=== PATIENT | female | born 1955 | race African-American/Black ===

== ENCOUNTER 2016-06-05 21:42 | Observation (INO) | payer OTHER ==
[~2016-06-05] VITALS: Ht 157.5 cm; Wt 82.0 kg
[~2016-06-05 21:42] MED LIST: AMLO10 PO; ASPI81 PO; CLON.1 PO; FURO1TAB93 PO; METO100T PO; NITR0.4S SL; PRIN20TA2 PO; TELM1TAB56 PO
[2016-06-05 21:45] VITALS: BP 190/90; PULSE 91; RESP 15; TEMP 98.6; O2SAT 100
[2016-06-05] MEDS ORDERED: SODIUM CHLORIDE 0.9% FLUSH 5 ML FLUSH IVF PRN (22:30)
[2016-06-05] MEDS ORDERED: ASPI81TA81 PO (22:47)
[2016-06-05] MEDS ORDERED: AMLO10TA2 PO (22:47)
[2016-06-05] MEDS ORDERED: METF500T PO (22:47)
[2016-06-05] MEDS ORDERED: FURO1TAB60 PO (22:47)
[2016-06-05] MEDS ORDERED: NITR1SUB3 SL (22:47)
[2016-06-05 22:56] LABS: AUTOMATED NEUTROPHIL # 1.8 TH/MM3 (1.8-7.7); BASOPHIL % 0.8 % (0.0-2.0); EOSINOPHIL # 0.1 TH/MM3 (0-0.4); HEMATOCRIT 39.1 % (35.0-46.0); HEMO FLAGS DIFF FINAL; LYMPH % 58.1 % (9.0-44.0); LYMPHOCYTE # 3.4 TH/MM3 (1.0-4.8); MEAN CELL VOLUME 84.9 FL (80.0-100.0); MEAN CORPUSCULAR HEMOGLOBIN 28.3 PG (27.0-34.0); MEAN CORPUSCULAR HGB CONC 33.4 % (32.0-36.0); MONO % 8.2 % (0.0-8.0); NEUT % 30.9 % (16.0-70.0); PLATELET COUNT 272 TH/MM3 (150-450); RED BLOOD COUNT 4.61 MIL/MM3 (4.00-5.30); RED CELL DISTRIBUTION WIDTH 12.8 % (11.6-17.2); WHITE BLOOD COUNT 5.9 TH/MM3 (4.0-11.0)
--- NOTE | 2016-06-05 23:06 | RADRPT ---
EXAM DATE/TIME: 06/05/2016 22:38 [facility] COMPARISON: No previous studies available for comparison. INDICATIONS : Chest pressure. MEDICAL HISTORY : Hyperthyroidism. Diabetes mellitus type II. SURGICAL HISTORY : Pacemaker. ENCOUNTER: Initial ACUITY: 1 day PAIN SCORE: 1/10 LOCATION: Bilateral chest FINDINGS: A single view of the chest demonstrates mild cardiac enlargement. Pacer leads overlying right atrium and right ventricle. No effusion. No pneumothorax. CONCLUSION: 1. Cardiomegaly. The pacer leads overlie right atrium and right ventricle. No focal consolidation or effusion. Bill Ventura MD on June 05, 2016 at 22:59 Board Certified Radiologist. This report was verified electronically.
[2016-06-05 23:07] LABS: APTT (PATIENT) 23.8 SEC (24.3-30.1); PROTHROMBIN TIME - PATIENT 10.7 SEC (9.8-11.6)
[2016-06-05 23:25] LABS: ALKALINE PHOSPHATASE 73 U/L (45-117); ALT (GPT) 32 U/L (10-53); ANION GAP 9 MEQ/L (5-15); AST (GOT) 27 U/L (15-37); BICARBONATE 30.4 MEQ/L (21.0-32.0); BLOOD UREA NITROGEN 9 MG/DL (7-18); CHLORIDE 101 MEQ/L (98-107); CREATINE KINASE 455 U/L (26-192); GLOMERULAR FILTRATION RATE 76 ML/MIN (>89); MAGNESIUM 1.8 MG/DL (1.5-2.5); POTASSIUM 3.2 MEQ/L (3.5-5.1); SODIUM (NA) 140 MEQ/L (136-145); TOTAL BILIRUBIN ADULT 0.3 MG/DL (0.2-1.0)
[2016-06-05 23:37] LABS: CKMB 5.7 NG/ML (0.5-3.6)
[2016-06-06] MEDS ORDERED: POTASSIUM CHLORIDE 25 MEQ EFFERVESCENT TAB PO ONE
[2016-06-06] MEDS ORDERED: ONDANSETRON HCL 4 MG/2 ML VIAL IV PRN
[2016-06-06] MEDS ORDERED: ACETAMINOPHEN 500 MG CPLT PO PRN
[2016-06-06] MEDS ORDERED: SODIUM CHLORIDE 0.9% FLUSH 5 ML FLUSH IVF PRN
--- NOTE | 2016-06-06 00:06 | PD ---
HPI Chief Complaint: Chest Pain Time Seen by Provider: 22:07 Travel History International Travel<30 days: No Contact w/Intl Traveler<30days: No Traveled to known affect area: No History of Present Illness HPI 61-year-old female came to the emergency room with history of left-sided chest pain going down her left arm. She also feels that her left arm is swollen and the swelling has been on and off for past 1 month. Patient says that there were CT scans done to check the arm but everything came out negative. Patient has a nutrition associate and it is Dr. Roach. She has a pacemaker that's 9 years old and it is due for replacement. She has an appointment with her nutrition associate in another 10-12 days. However she came in because of the pain. Currently she is pain-free. She has history of diabetes and hypertension. She describes the pain as pressure. She took 1 baby aspirin this morning. [facility] Past Medical History Narrative Medical List of her past medical, surgical, social and family history was reviewed from the nursing note. Autoimmune Disease: Yes (LUPUS DX. 3 YEARS AGO) Heart Rhythm Problems: Yes (HEART BLOCK TYPE 2) Cancer: No Cardiac Catheterization: No Cardiovascular Problems: Yes (PACEMAKER, HTN) High Cholesterol: No Congestive Heart Failure: No Diabetes: Yes Patient Takes Glucophage: Yes (METFORMIN) Glaucoma: No Hepatitis: No Hiatal Hernia: No Hypertension: Yes Psychiatric: No Myocardial Infarction: No Thyroid Disease: No Menopausal: Yes Past Surgical History Cardiac Surgery: Yes (PACEMAKER) Coronary Artery Bypass Graft: No Genitourinary Surgery: No Gynecologic Surgery: Yes (HYSTERECTOMY) Hysterectomy: Yes (RADICAL IN 1997- TOTAL) Pacemaker: Yes Other Surgery: Yes (LEFT BREAST CYST REMOVAL) Family History Family Myocardial Infarction: Yes (FATHER, AND TWO BROTHERS OF AK'S) Social History Alcohol Use: No Tobacco Use: No Substance Use: No Allergies-Medications (Allergen,Severity, Reaction): Coded Allergies: No Known Allergies (Verified , 06/05/16) Comments No known drug allergies. Reported Meds & Prescriptions Reported Meds & Active Scripts Active K-Tab (Potassium Chloride) 10 Meq Tab 10 Meq PO BID Reported Nitroglycerin SL (Nitroglycerin) 0.4 Mg Subl 0.4 Mg SL DIRECTED PRN ONE TABLET UNDER THE TONGUE NEEDED FOR CHEST PAIN, MAY REPEAT EVERY FIVE MINUTES FOR A TOTAL OF 3 DOSES OR CALL 911 IF NO RELIEF Lasix (Furosemide) 40 Mg Tab 40 Mg PO DAILY Aspir-81 (Aspirin) 81 Mg Tabdr 81 Mg PO DAILY Amlodipine (Amlodipine Besylate) 10 Mg Tab 10 Mg PO DAILY Metformin (Metformin HCl) 500 Mg Tab 500 Mg PO BIDPC With meals Narrative Medication List of her home medications were reviewed from the nursing note. Review of Systems Except as stated in HPI: all other systems reviewed are Neg Physical Exam Narrative GENERAL: Awake, alert, no obvious distress SKIN: Warm and dry. HEAD: Atraumatic. Normocephalic. EYES: Pupils equal and round. No scleral icterus. No injection or drainage. ENT: No nasal bleeding or discharge. Mucous membranes pink and moist. NECK: Trachea midline. No JVD. CARDIOVASCULAR: Regular rate and rhythm. No murmur appreciated. RESPIRATORY: No accessory muscle use. Clear to auscultation. Breath sounds equal bilaterally. GASTROINTESTINAL: Abdomen soft, non-tender, nondistended. Hepatic and splenic margins not palpable. MUSCULOSKELETAL: No obvious deformities. No clubbing. No cyanosis. No edema. Left upper extremity does not show any swelling. Good distal pulses and sensation. NEUROLOGICAL: Awake and alert. No obvious cranial nerve deficits. Motor grossly within normal limits. Normal speech. PSYCHIATRIC: Appropriate mood and affect; insight and judgment normal. Data Data Last Documented VS Vital Signs Date Time Temp Pulse Resp B/P Pulse Ox O2 Delivery O2 Flow Rate FiO2 06/05/16 22:00 18 Room Air 06/05/16 21:45 98.6 91 190/90 100 Orders Electrocardiogram (06/05/16 ) B-Type Natriuretic Peptide (06/05/16 22:24) Ckmb (Isoenzyme) Profile (06/05/16 22:24) Complete Blood Count With Diff (06/05/16 22:24) Comprehensive Metabolic Panel (06/05/16 22:24) Magnesium (Mg) (06/05/16 22:24) Prothrombin Time / Inr (Pt) (06/05/16 22:24) Act Partial Throm Time (Ptt) (06/05/16 22:24) Troponin I (06/05/16 22:24) Chest, Single Ap (06/05/16 22:24) Ecg Monitoring (06/05/16 22:24) Bilateral Bp Monitoring (06/05/16 22:24) Iv Access Insert/Monitor (06/05/16 22:24) Oximetry (06/05/16 22:24) Oxygen Administration (06/05/16 22:24) Sodium Chloride 0.9% Flush (Ns Flush) (06/05/16 22:30) CKMB (06/05/16 22:30) CKMB% (06/05/16 22:30) Potassium Chloride Eff (K-Lyte Cl Eff) (06/06/16 00:00) Admit Order (Ed Use Only) (06/05/16 23:58) Place In Observation (06/05/16 23:58) Activity Bed Rest With Brp (06/05/16 23:58) Vital Signs (Adult) Q4H (06/05/16 23:58) Cardiac Rhythm .As Directed (06/05/16 23:58) ^ Notify Dr: Other .PRN (06/05/16 23:58) ^ Notify Dr. Parameters (06/05/16 23:58) Resp Oxygen Nasal Cannula (06/05/16 ) Ckmb (Isoenzyme) Profile (06/05/16 23:58) Ckmb (Isoenzyme) Profile (06/06/16 02:58) Troponin I (06/05/16 23:58) Troponin I (06/06/16 02:58) Electrocardiogram (06/05/16 23:58) Electrocardiogram (06/06/16 02:58) ^ Obtain (06/05/16 23:58) Sodium Chloride 0.9% Flush (Ns Flush) (06/06/16 00:00) Sodium Chloride 0.9% Flush (Ns Flush) (06/06/16 09:00) Acetaminophen (Tylenol) (06/06/16 00:00) Ondansetron Inj (Zofran Inj) (06/06/16 00:00) Float Remover / Telemetry PIPPA.Q8H (06/05/16 23:58) CKMB (06/06/16 01:30) CKMB% (06/06/16 01:30) CKMB (06/06/16 04:30) CKMB% (06/06/16 04:30) Labs Laboratory Tests Test 06/05/16 22:30 White Blood Count 5.9 TH/MM3 Red Blood Count 4.61 MIL/MM3 Hemoglobin 13.1 GM/DL Hematocrit 39.1 % Mean Corpuscular Volume 84.9 FL Mean Corpuscular Hemoglobin 28.3 PG Mean Corpuscular Hemoglobin 33.4 % Concent Red Cell Distribution Width 12.8 % Platelet Count 272 TH/MM3 Mean Platelet Volume 8.3 FL Neutrophils (%) (Auto) 30.9 % Lymphocytes (%) (Auto) 58.1 % Monocytes (%) (Auto) 8.2 % Eosinophils (%) (Auto) 2.0 % Basophils (%) (Auto) 0.8 % Neutrophils # (Auto) 1.8 TH/MM3 Lymphocytes # (Auto) 3.4 TH/MM3 Monocytes # (Auto) 0.5 TH/MM3 Eosinophils # (Auto) 0.1 TH/MM3 Basophils # (Auto) 0.0 TH/MM3 CBC Comment DIFF FINAL Differential Comment Prothrombin Time 10.7 SEC Prothromb Time International 1.0 RATIO Ratio Activated Partial 23.8 SEC Thromboplast Time Sodium Level 140 MEQ/L Potassium Level 3.2 MEQ/L Chloride Level 101 MEQ/L Carbon Dioxide Level 30.4 MEQ/L Anion Gap 9 MEQ/L Blood Urea Nitrogen 9 MG/DL Creatinine 0.91 MG/DL Estimat Glomerular Filtration 76 ML/MIN Rate Random Glucose 150 MG/DL Calcium Level 9.1 MG/DL Magnesium Level 1.8 MG/DL Total Bilirubin 0.3 MG/DL Aspartate Amino Transf 27 U/L (AST/SGOT) Alanine Aminotransferase 32 U/L (ALT/SGPT) Alkaline Phosphatase 73 U/L Total Creatine Kinase 455 U/L Creatine Kinase MB 5.7 NG/ML Creatine Kinase MB % 1.3 % Troponin I LESS THAN 0.02 NG/ML B-Type Natriuretic Peptide 7 PG/ML Total Protein 8.6 GM/DL Albumin 3.9 GM/DL [facility] Medical Decision Making Medical Screen Exam Complete: Yes Emergency Medical Condition: Yes Medical Record Reviewed: Yes Interpretation(s) Twelve-lead EKG was reviewed by me. Normal sinus rhythm, normal axis, anterior T-wave inversions, LVH by voltage criteria, first-degree AV block. Heart rate of 82 bpm. Differential Diagnosis ACS, non-STEMI, nonspecific chest pain Narrative Course 12 AM patient had multiple risk factors including age, obesity, diabetes and hypertension. Her last stress test was 9 years ago. I'm admitting her to the chest pain center for a rule out ACS and a stress test. Procedures EKG Prior to Arrival: Yes Diagnosis Primary Impression: Chest pain Qualified Code: R07.9 - Chest pain, unspecified type Admitting Information Admitting Physician Requests: Observation Scripts Potassium Chloride ER (K-Tab)10 Meq Tab10 Meq PO BID #60 TAB Ref 0 Prov:Anders Oconnell 06/06/16 Luisa Harrell MD Jun 06, 2016 00:06
[2016-06-06] MEDS ORDERED: ASPIRIN 81 MG CHEW TAB CHEW ONE (00:15)
[2016-06-06 02:02] LABS: CREATINE KINASE 360 U/L (26-192)
[2016-06-06 02:12] VITALS: PULSE 64
[2016-06-06 02:15] LABS: CKMB 4.8 NG/ML (0.5-3.6)
[2016-06-06 04:00] VITALS: BP 137/72; PULSE 78; RESP 21; TEMP 98; O2SAT 98
[2016-06-06 05:22] LABS: CREATINE KINASE 325 U/L (26-192)
[2016-06-06 05:35] LABS: CKMB 4.1 NG/ML (0.5-3.6)
[2016-06-06 07:00] VITALS: PULSE 62
[2016-06-06 08:01] VITALS: O2SAT 98
[2016-06-06 08:24] VITALS: BP 133/67; PULSE 71; RESP 18; TEMP 97.7; O2SAT 97
[2016-06-06] MEDS ORDERED: ASPIRIN 325 MG TAB PO SCH (09:00)
[2016-06-06] MEDS ORDERED: SODIUM CHLORIDE 0.9% FLUSH 5 ML FLUSH IVF SCH (09:00)
[2016-06-06] MEDS ORDERED: DEXTROSE 50% IN WATER 50 ML VIAL(D50) IV PRN (09:00)
[2016-06-06] MEDS ORDERED: FUROSEMIDE 40 MG TAB PO SCH (09:00)
[2016-06-06] MEDS ORDERED: GLUCAGON 1 MG/ML VIAL IM/SQ PRN (09:00)
--- NOTE | 2016-06-06 10:31 | RADRPT ---
EXAM DATE/TIME: 06/06/2016 09:31 [facility] COMPARISON: No previous studies available for comparison. INDICATIONS : Left arm swelling. MEDICAL HISTORY : Hypertension. Heart block. Lupus. Diabetes. SURGICAL HISTORY : Pacemaker. Hysterectomy. Cyst removed from left breast. ENCOUNTER: Initial ACUITY: 1 month PAIN SCORE: 0/10 LOCATION: Left arm. FINDINGS: There is spontaneous flow documented in the brachial, basilic, cephalic, axillary, and subclavian vei ns. The vessels are compressible and augmentation response is documented. No filling defects are se en. The flow is phasic with respiration. Direction of flow in the jugular vein is caudal. CONCLUSION: No DVT. Riccardo Aguirre MD on June 06, 2016 at 10:26 Board Certified Radiologist. This report was verified electronically.
[2016-06-06] MEDS ORDERED: INSULIN ASPART SUPPLEMENTAL SCALE SQ SCH (11:00)
--- NOTE | 2016-06-06 11:18 | HHI.HP ---
HPI Primary Care Physician No Primary Care Physician Chief Complaint Chest pain and left arm edema History of Present Illness This is a 61-year-old female with history of hypertension diabetes and complete heart block and has a pacemaker that presents to ED to evaluate left arm swelling and chest pain. Patient states she has had issues of her left arm swelling in the past. She states it was evaluated with imaging studies a few years ago and was in ultrasound 2011 that was negative for DVT. She states that the arm has been swollen for the last week constantly. Is not painful. 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 She was working last night when she developed a left-sided chest pressure that lasted a couple hours. She had no associated shortness breath nausea or diaphoresis with the symptoms. Nothing worsen the symptoms when she had them. She is doing nothing strenuous when it occurred. Denies recent illnesses. Denies fevers or chills. Patient had a heart catheterization in 2007 when she is also found to be in a complete heart block. She had normal coronaries. Patient follows Dr. Shaheen Roach of cardiology in the outpatient setting. States she last saw him last month and had a pacemaker interrogation which was okay. She states that it is getting close to being the battery changed. Review of Systems General: Patient denies fevers, chills recent, and recent travel HEENT: Patient denies headache, sore throat, difficulty swallowing. Cardiovascular: Has the chest discomfort as mentioned above. Denies sensation of heart beating rapidly or irregularly. No syncope. Respiratory: Denies shortness of breath or inspirational chest discomfort. Denies coughing wheezing or hemoptysis. GI: Patient denies nausea, vomiting, diarrhea, abdominal pain, bloody stools. Musculoskeletal: She currently the swelling in her left arm more so on the forearm. She has had issues of this in the past. Denies joint pain. Denies calf pain or edema. Neurovascular: Patient denies numbness, tingling, weakness in extremities. Denies headache. Endocrine: Denies polyuria and polydipsia. Hematologic: Denies easy bruising. Skin: Denies rash or itching. Past Family Social History Allergies: Coded Allergies: No Known Allergies (Verified , 06/05/16) Past Medical History Hypertension, diabetes, history of complete heart block requiring a pacemaker in 2007. Lupus. Denies hyperlipidemia and CAD. Past Surgical History Cardiac catheterization without stenting 2007. Pacemaker 2007. Reported Medications Reported Meds & Active Scripts Active Reported Nitroglycerin SL (Nitroglycerin) 0.4 Mg Subl 0.4 Mg SL DIRECTED PRN ONE TABLET UNDER THE TONGUE NEEDED FOR CHEST PAIN, MAY REPEAT EVERY FIVE MINUTES FOR A TOTAL OF 3 DOSES OR CALL 911 IF NO RELIEF Lasix (Furosemide) 40 Mg Tab 40 Mg PO DAILY Aspir-81 (Aspirin) 81 Mg Tabdr 81 Mg PO DAILY Amlodipine (Amlodipine Besylate) 10 Mg Tab 10 Mg PO DAILY Metformin (Metformin HCl) 500 Mg Tab 500 Mg PO BIDPC With meals Active Ordered Medications Current Medications Medications (Trade) Dose Ordered Sig/Jose Antonio Route Start Time Stop Time Status Last Admin (NS Flush) 2 ml UNSCH PRN IVF 06/05/16 22:30 (NS Flush) 2 ml UNSCH PRN IVF 06/06/16 00:00 (NS Flush) 2 ml BID IVF 06/06/16 09:00 06/06/16 10:12 (Tylenol) 500 mg Q4H PRN PO 06/06/16 00:00 (Zofran Inj) 4 mg Q6H PRN IV 06/06/16 00:00 (Norvasc) 10 mg DAILY PO 06/06/16 09:00 06/06/16 10:11 (Lasix) 40 mg DAILY PO 06/06/16 09:00 06/06/16 10:11 (Aspirin) 325 mg DAILY PO 06/06/16 09:00 06/06/16 10:12 (D50w (Vial) Inj) 25 ml UNSCH PRN IV 06/06/16 09:00 (Glucagon Inj) 1 mg UNSCH PRN IM/SQ 06/06/16 09:00 Family History Family history of CAD. Her follow had an [place] in his 30s. She has 2 brothers anatomized at 54 and 61. Social History Patient is a lifetime nonsmoker. Denies alcohol or illicit drugs. Physical Exam Vital Signs Vital Signs Date Time Temp Pulse Resp B/P Pulse Ox O2 Delivery O2 Flow Rate FiO2 06/06/16 08:24 97.7 71 18 133/67 97 06/06/16 08:01 98 21 06/06/16 07:00 62 06/06/16 04:00 98.0 78 21 137/72 98 06/06/16 02:12 64 06/05/16 22:00 18 Room Air 06/05/16 21:45 98.6 91 15 190/90 100 Room Air Physical Exam GENERAL: This is a well-nourished, well-developed patient, in no apparent distress. Patient speaks in clear complete sentences. Patient is pleasant. HEENT: Head is atraumatic and normocephalic. Neck is supple without lymphadenopathy and trachea is midline. No JVD or carotid bruits. CARDIOVASCULAR: Regular rate and rhythm without murmurs, gallops, or rubs. RESPIRATORY: Left anterior chest wall is tender. This is similar to the discomfort she had before. Clear to auscultation. Breath sounds equal bilaterally. No wheezes, rales, or rhonchi. No use of accessory muscles. GASTROINTESTINAL: Abdomen is nontender, nondistended. Abdomen soft. No obvious pulsatile mass or bruit. No CVA tenderness. Strong femoral pulses bilaterally. Normal bowel sounds in all quadrants. MUSCULOSKELETAL: Patient is moving upper and lower extremities freely. No calf tenderness or edema, no Homans sign. Strong pulses in upper and lower extremities. NEUROLOGICAL: Patient is alert and oriented. Cranial nerves 2-12 are grossly intact. No focal deficits and speech is clear. SKIN: No rash and turgor is normal. Laboratory Laboratory Tests Test 06/05/16 06/06/16 06/06/16 22:30 01:30 04:30 White Blood Count 5.9 Red Blood Count 4.61 Hemoglobin 13.1 Hematocrit 39.1 Mean Corpuscular Volume 84.9 Mean Corpuscular Hemoglobin 28.3 Mean Corpuscular Hemoglobin 33.4 Concent Red Cell Distribution Width 12.8 Platelet Count 272 Mean Platelet Volume 8.3 Neutrophils (%) (Auto) 30.9 Lymphocytes (%) (Auto) 58.1 Monocytes (%) (Auto) 8.2 Eosinophils (%) (Auto) 2.0 Basophils (%) (Auto) 0.8 Neutrophils # (Auto) 1.8 Lymphocytes # (Auto) 3.4 Monocytes # (Auto) 0.5 Eosinophils # (Auto) 0.1 Basophils # (Auto) 0.0 CBC Comment DIFF FINAL Differential Comment Prothrombin Time 10.7 Prothromb Time International 1.0 Ratio Activated Partial 23.8 Thromboplast Time Sodium Level 140 Potassium Level 3.2 Chloride Level 101 Carbon Dioxide Level 30.4 Anion Gap 9 Blood Urea Nitrogen 9 Creatinine 0.91 Estimat Glomerular Filtration 76 Rate Random Glucose 150 Calcium Level 9.1 Magnesium Level 1.8 Total Bilirubin 0.3 Aspartate Amino Transf 27 (AST/SGOT) Alanine Aminotransferase 32 (ALT/SGPT) Alkaline Phosphatase 73 Total Creatine Kinase 455 360 325 Creatine Kinase MB 5.7 4.8 4.1 Creatine Kinase MB % 1.3 1.3 1.3 Troponin I LESS THAN 0.02 LESS THAN 0.02 LESS THAN 0.02 B-Type Natriuretic Peptide 7 Total Protein 8.6 Albumin 3.9 Result Diagram: 06/05/16222906/05/162229 Imaging Last 48 hours Impressions Upper Extremity Ultrasound 06/06/16 0000 Signed Impressions: Service Date/Time: Monday, June 06, 2016 09:31 - CONCLUSION: No DVT. Riccardo Aguirre MD Chest X-Ray 06/05/162223 Signed Impressions: Service Date/Time: May 22:38 - CONCLUSION: 1. Cardiomegaly. The pacer leads overlie right atrium and right ventricle. No focal consolidation or effusion. Bill Ventura MD Course First EKG is sinus rhythm and first-degree AV block. Second and third EKGs are ventricularly paced. Assessment and Plan Assessment and Plan * Chest pain: Patient has had serial cardiac enzymes and EKGs for ruling out purposes. She will be seen by Dr. Portillo of cardiology and the chest pain center to further determine if any further workup is needed. Her left chest wall is tender to palpate which is similar to the discomfort she has had. * Hypertension: Continue current medication. * Diabetes: Follow diabetic dieting continue current medication. She'll be covered with sliding scale coverage while in the chest pain center. Patient is not on statin therapy. She will discuss this with her physician. * History of heart block: Patient has a pacemaker. She should continue follow- up with Dr. Shaheen Roach who has been managing her. Anders Oconnell Jun 06, 2016 11:18
[2016-06-06 12:01] VITALS: BP 131/71; PULSE 68; RESP 18; TEMP 97.4; O2SAT 100
--- NOTE | 2016-06-06 12:23 | HHI.DCPOC ---
Discharge Care Plan Diagnosis: (1) Chest pain, atypical (2) DM (diabetes mellitus) (3) Hypertension (4) Hypokalemia (5) Pacemaker Goals to Promote Your Health * To prevent worsening of your condition and complications * To maintain your health at the optimal level Directions to Meet Your Goals Take your medications as prescribed Follow your dietary instruction Follow activity as directed Keep your appointments as scheduled Take your immunizations and boosters as scheduled If your symptoms worsen call your PCP, if no PCP go to Urgent Care Center or Emergency Room Smoking is Dangerous to Your Health. Avoid second hand smoke Call the 24-hour hour crisis hotline for domestic abuse at Anders Oconnell Jun 06, 2016 12:23
[2016-06-06] MEDS ORDERED: K-TA10TA PO (12:25)
--- NOTE | 2016-06-06 14:23 | EKG ---
Date Performed: 06/06/2016 Time Performed: 01:26:08 PTAGE: 61 years EKG: ELECTRONIC AV pacing ABNORMAL RHYTHM ECG Compared to PREVIOUS TRACING now in AV pacing, was atrial paced. DOCTOR: Wong Portillo Interpretating Date/Time 06/06/2016 14:21:42
--- NOTE | 2016-06-06 14:25 | EKG ---
Date Performed: 06/05/2016 Time Performed: 22:01:39 PTAGE: 61 years EKG: Sinus rhythm WITH FIRST DEGREE AV BLOCK VOLTAGE CRITERIA FOR LVH Nonspecific ST and T wave abnormalities ABNORMAL ECG PREVIOUS TRACING : 01/23/2009 10.18 Since previous tracing, no significant change noted DOCTOR: Wong Portillo Interpretating Date/Time 06/06/2016 14:24:31
--- NOTE | 2016-06-06 14:28 | EKG ---
Date Performed: 06/06/2016 Time Performed: 04:58:33 PTAGE: 61 years EKG: ELECTRONIC VENTRICULAR PACEMAKER ABNORMAL RHYTHM ECG PREVIOUS TRACING : 06/05/2016 22.01 Since previous tracing, no significant change noted DOCTOR: Wong Portillo Interpretating Date/Time 06/06/2016 14:27:16
== END 2016-06-06 14:07 | disposition home or self-care (01) ==
LOC: NEPE 21:42 → NEDA 06-06 → NEPHCDU 06-06 01:31
PROVIDERS: ADMIT Internal Medicine Interventional Cardiology; ATTEND Internal Medicine Interventional Cardiology
DX: R07.9 Chest pain, unspecified (principal); I44.2 Atrioventricular block, complete; I10 Essential (primary) hypertension; E87.6 Hypokalemia; E11.9 Type 2 diabetes mellitus without complications; Z82.49 Family history of ischemic heart disease and other diseases of the circulatory system; Z95.0 Presence of cardiac pacemaker; Z79.82 Long term (current) use of aspirin; Z79.84 Long term (current) use of oral hypoglycemic drugs
CPT/HCPCS: 71010; 80053; 82550; 82552; 82948; 83735; 83880; 84484; 85025; 85610; 85730; 93005; 93971; 99285; G0378

== ENCOUNTER 2017-04-22 00:40 | Emergency (ER) | payer OTHER ==
[~2017-04-22] VITALS: Ht 160 cm; Wt 84.5 kg
[~2017-04-22 00:40] MED LIST changes: -AMLO10 PO; +AMLO10TA2 PO; -ASPI81 PO; +ASPI81TA81 PO; -CLON.1 PO; +FURO1TAB60 PO; -FURO1TAB93 PO; +K-TA10TA PO; +METF500T PO; -METO100T PO; -NITR0.4S SL; +NITR1SUB3 SL; -PRIN20TA2 PO; -TELM1TAB56 PO
[2017-04-22 00:42] VITALS: BP 185/96; PULSE 86; RESP 20; TEMP 97.8; O2SAT 98
[2017-04-22] MEDS ORDERED: LOSA25TA PO (01:00)
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
[2017-04-22] MEDS ORDERED: ACETAMINOPHEN 500 MG CPLT PO ONE (01:15)
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
--- NOTE | 2017-04-22 09:29 | EKG ---
Date Performed: 04/22/2017 Time Performed: 01:10:07 PTAGE: 62 years EKG: Sinus rhythm WITH FIRST DEGREE AV BLOCK MODERATE VOLTAGE CRITERIA FOR LVH, CONSIDER NORMAL VARIANT ABNORMAL ECG PREVIOUS TRACING : 06/06/2016 04.58 Compared to the prior study, paced rhythm is no longer note d. DOCTOR: Shaheen Roach Interpretating Date/Time 04/22/2017 09:25:41
== END 2017-04-22 01:48 | disposition home or self-care (01) ==
LOC: NEPE 00:40
DX: R07.89 Other chest pain (principal); E11.9 Type 2 diabetes mellitus without complications; I10 Essential (primary) hypertension; Z79.84 Long term (current) use of oral hypoglycemic drugs
CPT/HCPCS: 71046; 93005